=== PATIENT | female | born 1980 | race Caucasian/White ===

== ENCOUNTER → 2016-05-25 | Outpatient (CLI) | payer OTHER ==
[2015-04-18 14:57] VITALS: BP 133/83
[~2016-05-25] MED LIST: ACET500T55 PO; ARIP10TA13 PO; ASPI81TA44 PO; CARB300C5 PO; CLON0.1T PO; CLON1TAB PO; CLON1TAB3 PO; CRESTOR40 MG PO; CYCL10TA2 PO; DOXY100T PO; GUAI600T38 PO; HYDR25TA9 PO; HYDR50TA6 PO; INSU100V13 SQ; INSU100V5 IJ; LACT1CAP6 PO; LAMO200T3 PO; LISI2.5T PO; METF10002 PO; METO-269 PO; METO100T11 PO; METO100T2 PO; METO25TA4 PO; METO5AMP2 IV; NALT50TA PO; NIAC500T PO; NIAC500T10 PO; OMEG1CAP6 PO; OMEP20TA PO; OXCA300T PO; PANT40TA5 PO; PRAS10TA4 PO; SERT100T PO; SERT50TA PO; VENTOLIN HFA18 GM INH
--- NOTE | 2016-05-25 10:47 | RAD ---
EXAM: Chest, 2 views. HISTORY: Dry cough. COMPARISON: 02/17/2016. FINDINGS: Frontal and lateral views of the chest are obtained. There is no infiltrate, effusion or pneumothorax. The heart is normal in size. IMPRESSION: No acute pulmonary finding.
== END | disposition home or self-care (01) ==
LOC: RAD 10:20
PROVIDERS: ATTEND Internal Medicine Pulmonary Disease
DX: R06.02 Shortness of breath (principal); R05 Cough
CPT/HCPCS: 71020

== ENCOUNTER → 2016-06-05 | Outpatient (CLI) | payer OTHER ==
[2015-04-18 14:57] VITALS: BP 133/83
[~2016-06-05] MED LIST changes: +ATOR40TA PO; +LISI-338 PO
--- NOTE | 2016-06-05 14:07 | RAD ---
APPROVED REPORT Test Type: Exercise Stress Nurse/Tech: Sarah Carreon R.N. Test Indications: Chest pain Cardiac History: AR 2015, Stent, HTN, Family Hx AR,CAD Medications: SEE EMR Medical History: SEE EMR Resting ECG: SR Resting Heart Rate: 80 bpm Resting Blood Pressure: 133/80mmHg Pretest Chest Pain: No chest pain Nurse/Tech Notes S1S2, lungs CTA, denied chest pain or SOA. Consent: The procedure was explained to the patient in lay terms. Informed consent was witnessed. Fabio eout was entered into [employer]. History and Stress Test performed by Sarah Carreon R.N. Stress Symptoms SOA. POST EXERCISE Reason for Termination: Reached target heart rate Target HR: 156 Max HR: 160 bpm 102% of Maximum Predicted HR: 184 bpm Exercise duration: 7:00 min:sec, 2 Stage Exercise capacity: 10.0METs Max Blood Pressure: 176/99mmHg Blood Pressure response to exercise: Normal blood pressure response during stress. Heart Rate response to exercise: Norrmal Chest Pain: No. Arrhythmia: No. ST Change: No. INTERPRETATION Stress EKG Conclusion: No acute changes were noted. Pt was extremely SOA and was not able to continue past 7:00 minutes. Imaging Protocol IMAGE PROTOCOL: Rest Tc-99m/stress Tc-99m 1 day Rest: Stress: Viability: Radiopharm.Tc99m KjvoultsyTj90i Sestamibi Dose12.2mCi 34mCi Duration 15min. 10min. Img Date 06/05/2016 06/05/2016 Inj-Img Naqz50aum. 60min. Rest Admin Site:IV - Left AntecubitalAdministrator:PRISCILLA Markham Stress Admin Site: IV - Left AntecubitalAdministrator: Edward Stein, RT (R)(N) STRESS DATA End Diast. Vol.153.0mlAv. Heart Rate70.0bpm End Syst. Vol.60.0mlCO Index BSA0.0L/min Myocardial Yzvf617.0gEject. Yonivvnl50.0% Stress Rates Pk. Fill Rate2.71EDV/secLVtime Pk. Fill 118.63msec Pk. Empty Rate3.00ESV/secLVtime Pk. Zyxms606.36msec 05/19 Pk. Fill1.82EDV/sec Stress Scores Regional WT0.00Summed WT14.00 Regional WM0.00Summed WM0.00 LV Perfusion There is a large sized, severe in intensity partially reversible defect consistent with prior infarct with mild efraín-infarct reversible ischemia. Wall Motion Moderate lateral wall hypokinesis. LV Perf. Quant 17 Seg. SSS13.00 17 Seg. SRS11.00 17 Seg. SDS3.00 Stress Defect Extent (% LAD)0.00Rest Defect Extent (% LAD)0.00Rev. Defect Extent (% LAD)0.00 Stress Defect Extent (% LCX) 93.80Rest Defect Extent (% LCX)86.30Rev. Defect Extent (% LCX)17.50 Stress Defect Extent (% RCA)0.00Rest Defect Extent (% RCA)0.00Rev. Defect Extent (% RCA)0.00 Stress Defect Extent (% JESUS)20.70Rest Defect Extent (% JESUS)18.70Rev. Defect Extent (% JESUS)3.30 Other Information Quality:Good Risk Assessment: Moderate Risk Conclusion 1. EKG changes suggestive of ischemia in the anterolateral territory with [address] segment depression. 2. Large lateral wall defect consistent with prior infarct with mild efraín-infarct reversibility. 3. Normal EF. 4. Moderate risk study.
== END | disposition home or self-care (01) ==
LOC: NM 06:59
PROVIDERS: ATTEND Internal Medicine Cardiovascular Disease
DX: R07.9 Chest pain, unspecified (principal)
CPT/HCPCS: 78452; 93017; 96374; A9500

== ENCOUNTER 2016-06-08 09:40 | Observation (INO) | payer OTHER ==
[~2016-06-08] VITALS: Ht 165.1 cm; Wt 83.9 kg
[2016-06-08] VITALS (10 sets, daily range): BP systolic 116–155; BP diastolic 66–97
[~2016-06-08 09:40] MED LIST changes: -ATOR40TA PO
[2016-06-08] MEDS ORDERED: IV NORMAL SALINE 1000ML BAG 1,000 ML IV SCH (10:00)
[2016-06-08 10:09] LABS: BASO # 0.1 x10^3/uL (0.0-0.2); BASO % 1 % (0-3); EOS % 2 % (0-3); HEMATOCRIT 40.9 % (36.0-47.0); HEMOGLOBIN 14.2 g/dL (12.0-15.5); LYMPH # 3.4 x10^3/uL (1.0-4.8); LYMPH % 32 % (24-48); MEAN CORPUSCULAR HEMOGLOBIN 30 pg (25-35); MEAN CORPUSCULAR HGB CONC 35 g/dL (31-37); MEAN CORPUSCULAR VOLUME 86 fL (79-100); MONO % 6 % (0-9); NEUT % 59 % (31-73); PLATELET COUNT 244 x10^3/uL (140-400); RED BLOOD COUNT 4.74 x10^6/uL (3.50-5.40); RED CELL DISTRIBUTION WIDTH 14.6 % (11.5-14.5); WHITE BLOOD COUNT 10.5 x10^3/uL (4.0-11.0)
[2016-06-08 10:19] LABS: NEG OBC UR NEG; POS OBC UR POS
[2016-06-08 10:25] LABS: CALCIUM 8.3 mg/dL (8.5-10.1); CREATININE 0.9 mg/dL (0.6-1.0); GFR 70.8; POTASSIUM 3.6 mmol/L (3.5-5.1)
[2016-06-08] MEDS ORDERED: ASPIRIN 325 MG TABLET PO ONE (10:30)
[2016-06-08] MEDS ORDERED: IOHEXOL 300 MG/ML 100ML VIAL. ONE (11:32)
[2016-06-08] MEDS ORDERED: LIDOCAINE 2% 20 ML VIAL. ONE (11:33)
[2016-06-08] MEDS ORDERED: NITROGLYCERIN 200 MCG/2 ML SYRINGE FOR CATH/VASC LAB. ONE (11:34)
[2016-06-08] MEDS ORDERED: HEPARIN for IV BOLUS 10,000 UNIT/10 ML VIAL. ONE (11:34)
[2016-06-08] MEDS ORDERED: MIDAZOLAM HCL 2 MG/2 ML VIAL. ONE ×2 (11:34→12:15)
[2016-06-08] MEDS ORDERED: VERAPAMIL 5 MG/2 ML VIAL. ONE (11:34)
[2016-06-08] MEDS ORDERED: FENTANYL PF 100 MCG/2 ML VIAL. ONE (11:34)
[2016-06-08] MEDS ORDERED: VERAPAMIL 5 MG/2 ML VIAL. IART ONE (12:00)
[2016-06-08] MEDS ORDERED: FENTANYL PF 100 MCG/2 ML VIAL. IV ONE (12:00)
[2016-06-08] MEDS ORDERED: LIDOCAINE 2% 20 ML VIAL. IJ ONE (12:00)
[2016-06-08] MEDS ORDERED: MIDAZOLAM HCL 2 MG/2 ML VIAL. IV ONE (12:00)
[2016-06-08] MEDS ORDERED: HEPARIN for IV BOLUS 10,000 UNIT/10 ML VIAL. IART ONE (12:00)
[2016-06-08] MEDS ORDERED: IOHEXOL 300 MG/ML 100ML VIAL. IART ONE (12:00)
[2016-06-08] MEDS ORDERED: NITROGLYCERIN 200 MCG/2 ML SYRINGE FOR CATH/VASC LAB. IART ONE (12:00)
[2016-06-08] MEDS ORDERED: BIVALIRUDIN 250 MG VIAL IV ONE ×2 (12:23→12:28)
[2016-06-08] MEDS ORDERED: NITROGLYCERIN 200 MCG/2 ML SYRINGE FOR CATH/VASC LAB. ICAR ONE (12:26)
[2016-06-08] MEDS ORDERED: PRASUGREL 10 MG TABLET. ONE (12:57)
[2016-06-08] MEDS ORDERED: PRASUGREL 10 MG TABLET. PO ONE (13:00)
[2016-06-08] MEDS ORDERED: 0.9 % SODIUM CHLORIDE 10 ML DISP.SYRIN. IV PRN (15:00)
[2016-06-08] MEDS ORDERED: ACETAMINOPHEN 325 MG TABLET. PO PRN (15:00)
[2016-06-08] MEDS ORDERED: ATROPINE 0.5 MG/5 ML DISP.SYRIN. IV PRN (15:00)
[2016-06-08] MEDS ORDERED: CYCLOBENZAPRINE 10 MG TABLET. PO PRN ×2 (15:00→20:00)
[2016-06-08] MEDS ORDERED: NITROGLYCERIN SUBLINGUAL 0.4 MG BOTTLE OF 25. SL PRN (15:00)
[2016-06-08] MEDS ORDERED: LIDOCAINE 2% 100 MG/5 ML DISP.SYRIN. IV PRN (15:00)
[2016-06-08] MEDS ORDERED: AMIODARONE 150 MG in IV DEXTROSE 5% 100 ML IV PRN (15:00)
[2016-06-08] MEDS ORDERED: METO25TA4 PO (15:15)
[2016-06-08] MEDS ORDERED: CYCL10TA2 PO (15:15)
--- NOTE | 2016-06-08 17:14 | CARD ---
APPROVED REPORT Procedure(s) performed: [facility] + Coronary angiography PTCA + PCI of the mid LAD HISTORY The patient is a 35 year-old female with a history of : tobacco history() : The patient is a former s moker, previous PCI (The PCI date was ), hypertension, dyslipidemia. INDICATION The indication(s) include : positive stress test, unstable angina , Patient is a pleasant 35-year-old woman who comes in to the catheterization laboratory in the setting of a mildly abnormal stress test and accelerating angina. She has had a prior history of a left circumflex intervention in the [facility] g of cardiac arrest approximately 1 year ago.. PROCEDURE NARRATIVE The patient was brought electively to the cardiac catheterization lab. A timeout was performed confi rming the patient's name, date of , procedure, and site of procedure. All necessary personnel w ere wearing the appropriate protective equipment and radiation monitor devices. After explaining the risks and benefits of the procedure and alternatives, informed consent was obtained. (See nursing no julissa for medications administered). The right wrist was sterilely prepped and draped in the usual fas hion. The right wrist was infiltrated with 1 mL of 2% lidocaine for subcutaneous anesthesia. A 6 Fr ench Terumo glide sheath was inserted into the right radial artery without difficulty. Right and lef t coronary angiography was performed using a 6Fr TIG 4.0 catheter. Left ventricular end diastolic pr essure was obtained and pullback was performed. HEMODYNAMICS: LVEDP 18 mm Hg No gradient on LV to aortic pullback. CORONARY ANGIOGRAPHY: LM is a large caliber vessel with normal angiographic appearance. LAD is a large caliber vessel with a mid 80% stenosis. D1 is a small caliber vessel with mild luminal irregularities. LCx is a moderate caliber non-dominant vessel with a patent stent extending into the OM1 with a proxi mal 40-50% stent edge stenosis. OM1 is a moderate caliber vessel with a patent stent and approximate 50% stent edge stenosis in the p roximal and distal edges. RCA is a large caliber dominant vessel with normal angiographic appearance. RPDA is a moderate caliber vessel with a proximal 40% stenosis. INTERVENTIONAL TECHNIQUE: PCI of the LAD and FFR of the left circumflex Based upon the presentation of accelerating angina and abnormal stress test with a 80% LAD lesion and intervention was performed. Bivalirudin was used for anti-coagulation. Through a 6 Danish EBU 3.5 g uide catheter a 0.014 inch Prowater wire was used to traverse the LAD lesion. The lesion was then an gioplastied with a 3.5 x 15 mm trek balloon and then stented with a Xience Alpine 4.0 x 18 mm drug-el uting stent. Separately, post PCI angiography revealed possible mid stent suboptimal expansion and t herefore a noncompliant 4.0 mm balloon was used to post dilate the mid and proximal segment of the st ent at 18 fela. Subsequently, a Jinni pressure wire was then used to perform an iFR of the left cir cumflex and obtuse marginal stent. The iFR was measured at 0.94 and given that this was not signific antly decreased further intervention was deferred in favor of continued medical therapy. Final post PCI angiography revealed excellent stent expansion in the LAD and no evidence of guide or wire relate d complications. All catheter exchanges and advancements were performed over a guidewire. At case co mpletion the right radial sheath was removed and a Terumo radial band was applied with 13 ml of air. The patient tolerated the procedure well and there were no immediate complications. The patient rec eived 60 mg of Prasugrel at case completion. Conclusion 1. Two-vessel coronary artery disease with de rahat lesion in the mid LAD. 2. Patent stent in the left circumflex with 40-50% in-stent restenosis at the distal stent edge is a nd the proximal stent edge. 3. Successful PCI of the mid LAD with implantation of a 4.0 x 18 mm drug-eluting stent 4. Negative IFR of the left circumflex in-stent restenosis. Recommendations Aspirin 81 mg daily indefinitely Effient 10 mg daily for 1 full year and consider dual antiplatelet therapy for lifelong. High-dose atorvastatin Cardiac rehabilitation referral Continue aggressive medical therapy
[2016-06-08] MEDS ORDERED: ACETAMINOPHEN 500 MG TABLET PO PRN (20:00)
[2016-06-08] MEDS ORDERED: ALBUTEROL SULFATE 2.5 MG/3 ML NEBU. NEB PRN (20:00)
[2016-06-08] MEDS: FENTANYL PF 100 MCG/2 ML VIAL. IV PRN (20:07)
[2016-06-08] MEDS: CLONAZEPAM 1 MG TABLET PO SCH ×2 (21:00→21:41)
[2016-06-08] MEDS: OXCARBAZEPINE 300 MG TABLET. PO SCH (21:00)
[2016-06-08] MEDS ORDERED: ATORVASTATIN CALCIUM 40 MG TABLET. PO SCH (21:00)
[2016-06-08] MEDS: CARBAMAZEPINE 200 MG TABLET. PO SCH (21:00)
[2016-06-08] MEDS: METOPROLOL TART IMMED RELEASE 25 MG TABLET PO SCH (21:43)
[2016-06-09] MEDS: FENTANYL PF 100 MCG/2 ML VIAL. IV PRN (02:09)
[2016-06-09 02:45] VITALS: BP 116/63
[2016-06-09 05:06] LABS: CHOLESTEROL/HDL RATIO 3.7
[2016-06-09] MEDS ORDERED: PANTOPRAZOLE 40 MG TABLET. PO SCH (07:30)
[2016-06-09 07:55] VITALS: BP 142/85
[2016-06-09] MEDS ORDERED: ASPIRIN ENTERIC COATED 81 MG TABLET.DR. PO SCH (08:00)
[2016-06-09] MEDS ORDERED: ASPIRIN 81 MG TAB.CHEW PO SCH (08:00)
[2016-06-09] MEDS ORDERED: PRASUGREL 10 MG TABLET. PO SCH (08:00)
[2016-06-09 09:00] VITALS: BP 142/85
[2016-06-09] MEDS ORDERED: LISINOPRIL 5 MG TABLET. PO SCH (09:00)
[2016-06-09] MEDS: OXCARBAZEPINE 300 MG TABLET. PO SCH (09:00)
[2016-06-09] MEDS ORDERED: SERTRALINE 50 MG TABLET. PO SCH (09:00)
[2016-06-09] MEDS: METOPROLOL TART IMMED RELEASE 25 MG TABLET PO SCH (09:00)
[2016-06-09] MEDS: CARBAMAZEPINE 200 MG TABLET. PO SCH (09:00)
[2016-06-09] MEDS: CLONAZEPAM 1 MG TABLET PO SCH (09:00)
[2016-06-09] MEDS ORDERED: ATOR40TA PO (09:43)
[2016-06-09] MEDS ORDERED: PRAS10TA4 PO (09:45)
--- NOTE | 2016-06-09 10:02 | DISCH ---
DISCHARGE INSTRUCTIONS Condition on Discharge Condition on Discharge: Stable Activity After Discharge Activity Instructions for Disc: Activity as tolerated, Avoid exertion Other activity instructions: see diagnosis specific instructions Lifting Instructions after Dis: No heavy lifting, No pulling or pushing, Do not lift >10 pounds Driving Instructions after Dis: Do not drive today Weight Bearing Status after Di: As tolerated Diet after Discharge Diet after Discharge: Cardiac Contacting the DRZari after DC Call your doctor for: Concerns you may have RAMON FERNANDEZ APRN Jun 09, 2016 10:02
--- NOTE | 2016-06-09 13:59 | PDOC3 ---
Discharge Summary Visit Information Date of Admission: Jun 08, 2016 Date of Discharge: Jun 09, 2016 Admitting Diagnosis: Abnormal MPI Final Diagnosis Problems Medical Problems: (1) Coronary artery disease Status: Acute Brief Hospital Course Allergies Allergies Coded Allergies Type Severity Reaction Last Updated Verified Penicillins Allergy Intermediate Hives 04/15/15 Yes ibuprofen Allergy Intermediate Rash 04/15/15 Yes Vital Signs Vital Signs Date Time Temp Pulse Resp B/P Pulse Ox O2 Delivery O2 Flow Rate FiO2 06/09/16 09:00 53 142/85 06/09/16 08:00 Room Air 06/09/16 07:55 97.9 20 98 97.9 Lab Results Laboratory Tests Test 06/08/16 09:55 06/08/16 10:00 06/09/16 04:22 Urine Test Negative (NEG) White Blood Count 10.5x10^3/uL (4.0-11.0) Red Blood Count 4.74x10^6/uL (3.50-5.40) Hemoglobin 14.2g/dL (12.0-15.5) Hematocrit 40.9% (36.0-47.0) Mean Corpuscular Volume 86fL (79-100) Mean Corpuscular Hemoglobin 30pg (25-35) Mean Corpuscular Hemoglobin Concent 35g/dL (31-37) Red Cell Distribution Width 14.6% (11.5-14.5) Platelet Count 244x10^3/uL (140-400) Neutrophils (%) (Auto) 59% (31-73) Lymphocytes (%) (Auto) 32% (24-48) Monocytes (%) (Auto) 6% (0-9) Eosinophils (%) (Auto) 2% (0-3) Basophils (%) (Auto) 1% (0-3) Neutrophils # (Auto) 6.2x10^3uL (1.8-7.7) Lymphocytes # (Auto) 3.4x10^3/uL (1.0-4.8) Monocytes # (Auto) 0.6x10^3/uL (0.0-1.1) Eosinophils # (Auto) 0.2x10^3/uL (0.0-0.7) Basophils # (Auto) 0.1x10^3/uL (0.0-0.2) Prothrombin Time 13.0SEC (11.7-14.0) Prothromb Time International Ratio 1.0 (0.8-1.1) Sodium Level 143mmol/L (136-145) Potassium Level 3.6mmol/L (3.5-5.1) Chloride Level 106mmol/L (98-107) Carbon Dioxide Level 28mmol/L (21-32) Anion Gap 9 (6-14) Blood Urea Nitrogen 7mg/dL (7-20) Creatinine 0.9mg/dL (0.6-1.0) Estimated GFR (Cockcroft-Gault) 70.8 Glucose Level 97mg/dL (70-99) Calcium Level 8.3mg/dL (8.5-10.1) Triglycerides Level 88mg/dL (0-150) Cholesterol Level 129mg/dL (0-200) LDL Cholesterol, Calculated 76mg/dL (0-100) VLDL Cholesterol, Calculated 18mg/dL (0-40) HDL Cholesterol 35mg/dL (40-60) Cholesterol/HDL Ratio 3.7 Laboratory Tests Test 06/09/16 04:22 Triglycerides Level 88mg/dL (0-150) Cholesterol Level 129mg/dL (0-200) LDL Cholesterol, Calculated 76mg/dL (0-100) VLDL Cholesterol, Calculated 18mg/dL (0-40) HDL Cholesterol 35mg/dL (40-60) Cholesterol/HDL Ratio 3.7 Brief Hospital Course Ms. Mcmanus is a 35 old female, with a history of CAD s/p PCI/stent to LCx and dyslipidemia, who presented electively for cardiac catheterization following an outpatient MPI notable for large lateral wall defect consistent with prior infarct with mild efraín-infarct reversibility. Coronary angiogram demonstrated two-vessel coronary artery disease with lesion in the mid LAD along with patent stent in the left circumflex with 40-50% in-stent restenosis at the distal stent edge. Patient underwent successful PCI/drug eluting stent placement to the mid LAD. Negative IFR of the left circumflex in-stent restenosis. Monitored overnight without complications or dysrhythmias noted on telemetry. Right radial arteriotomy C/D/I with neurovascular status intact. Lungs CTA bilaterally. Heart tones regular; no murmurs present. DAPT with ASA 81 mg indefinitely and prasugrel 10mg daily for 1 full year with consideration of lifelong DAPT. Prasugrel coupon card provided. Discharge Information Condition at Discharge: Stable Follow Up: Weeks (4) Disposition/Orders: D/C to Home Scheduled Aspirin (Children's Aspirin) 81 MG PO DAILYWBKFT Atorvastatin Calcium (Lipitor) 1 TAB PO QHS Carbamazepine (Carbatrol) 300 MG PO Q12HR (Reported) Clonazepam (Clonazepam) 1 MG PO TID (Reported) Lisinopril (Lisinopril) 1 TAB PO DAILY (Reported) Metoprolol Tartrate (Metoprolol Tartrate) 1 TAB PO BID (Reported) Oxcarbazepine (Oxcarbazepine) 1 TAB PO BID (Reported) Pantoprazole Sodium (Pantoprazole Sodium) 1 TAB PO DAILY (Reported) Prasugrel Hcl (Effient) 1 TAB PO DAILY Sertraline Hcl (Zoloft) 100 MG PO DAILY (Reported) Scheduled PRN Acetaminophen (Mapap) 1,000 MG PO PRN Q6HRS PRN PRN MILD PAIN Albuterol Sulfate (Ventolin Hfa Inhaler) 2 PUFF INH PRN QID PRN PRN SHORTNESS OF BREATH (Reported) Cyclobenzaprine Hcl (Cyclobenzaprine Hcl) 1 TAB PO PRN TID PRN PRN MUSCLE SPASMS (Reported) Patient Instructions Patient Instructions sdfGENERAL INSTRUCTIONS: 1. Your dressing should be removed prior to leaving the hospital. 2. It is OK to shower the day after your procedure. 3. If you received stents, be sure to carry your stent information card with you in your wallet/purse at all times. 4. Call the office immediately at [phone] if you notice any fever or if there is redness, worsening tenderness/pain, increased bruising, or drainage from the puncture site. 5. Should you have bleeding from the site, lie down immediately & put pressure on the site. The pressure should be hard enough to stop the bleeding. Have the nearest person call 911. DO NOT try to drive to the ER with active bleeding. 6. If you notice a change in color, coolness to touch, or loss of feeling in the affected extremity, come to the emergency room. Please have someone drive you or call 911 if no one is available. DO NOT drive yourself. 7. If you normally take glucophage (metformin), please do not take this medicine for 48 hours following your procedure. 8. DO NOT STOP TAKING YOUR PLAVIX OR ASPIRIN UNLESS IT IS CLEARED BY A TREASURY ANALYST OF YOUR EXPLOSIVES TRUCK DRIVER AT OUR OFFICE. 9. QUIT SMOKING: the [place] [employer], [place] [employer], & [place] [employer] have cessation resources available on their websites 10. Please have someone available to drive you home from the hospital as you may be limited by sedation medications given during the procedure. Femoral (Groin) access: 1. Do no lifting, pushing, pulling, bending, stooping, or recurrent stair climbing for 3 days following your procedure. 2. Once past the first 3 days, do not do any HEAVY exertion or lifting for one week following the procedure. No gym workouts, running, lifting greater than a gallon of milk, etc 3. Do not submerge in bath or pool for one week. OK to drive 3 days following your procedure, but if going long distance, do not go alone & take hourly breaks to get out of car and walk around. Radial Artery (Wrist) access: 1. No pushing, pulling, lifting, typing, or anything that requires repetitive use/movement of the affected wrist for 3 days following your procedure. 2. OK to drive the day following your procedure. (This is because of effects of sedating medications.) Call the office at [phone] for any questions or concerns. RAMON FERNANDEZ APRN Jun 09, 2016 13:59
--- NOTE | 2016-06-15 14:55 | PDOC ---
Provider Note Provider Note Cardiology brief history and physical Giuseppe is a pleasant 35-year-old woman with past medical history as noted below who presented to the hospital in the setting of an abnormal stress test. She was recently seen in clinic in February 2016 during which time she's had progressive increase in dyspnea and occasional chest pain. She underwent a stress test which was suggestive of a fixed lateral wall defect consistent with her old history of myocardial infarction but she also had some mild apical reversibility for which she underwent cardiac catheterization. Her cardiac catheterization revealed a new 80% LAD stenosis which was then stented. Past medical history 1. Coronary artery disease 2. Septemia 3. Mild hypertension 4. Prior history of tobacco abuse Social history patient denies any current alcohol, tobacco or illicit drug use. Family history no significant early arthroscopic heart disease Allergies as noted above to penicillins and ibuprofen Medications: Pertinent cardiovascular medications include lisinopril, aspirin, Effient, atorvastatin and metoprolol. Review of systems is negative for 10 out of 14 systems reviewed unless otherwise mentioned above in HPI. Physical examination Vital signs afebrile, heart rate 70s, blood pressure 116/82, pulse ox 99% on room air, respiratory rate 14 GENERAL: Well-appearing, well-nourished and in no acute distress. HEENT: EOMI, BUTCH. NC/AT. NECK: Normal range of motion, supple without lymphadenopathy or JVD. LUNGS: CTAB. No wheezes rales or rhonchi. HEART: Regular rate and rhythm without murmurs, rubs or gallops. ABDOMEN: Soft, nontender, normoactive bowel sounds. No guarding, no rebound. No masses appreciated. EXTREMITIES: Normal range of motion, no pitting or edema. No clubbing or cyanosis. NEUROLOGICAL: Cranial nerves II through XII grossly intact. Normal speech. PSYCH: Normal mood, normal affect. SKIN: Warm, Dry, normal turgor, no rashes or lesions noted. Coronary angiography revealed patency of left circumflex stents with new 80% lesion which was stented with a 4.0 mm drug-eluting stent. Impression: 1. Coronary artery disease, early atherosclerosis Recommendations/plan: 1. Admission to the telemetry unit for overnight monitoring after PCI today. 2. Continue cardiac medications. 3. Referral to cardiac rehabilitation 4. Follow-up in clinic in approximately 4 weeks. RAYNE SHEA MD Jun 15, 2016 14:55
== END 2016-06-09 10:55 | disposition other institution (70) ==
LOC: CCL 09:40 → INTOOBSV 12:26 → 2 NORTH 12:26
PROVIDERS: ADMIT Internal Medicine Cardiovascular Disease; ATTEND Internal Medicine Cardiovascular Disease
DX: I25.110 Atherosclerotic heart disease of native coronary artery with unstable angina pectoris (principal); E78.5 Hyperlipidemia, unspecified; Z88.0 Allergy status to penicillin; T82.855A Stenosis of coronary artery stent, initial encounter; I10 Essential (primary) hypertension; Z87.891 Personal history of nicotine dependence
CPT/HCPCS: 36415; 80048; 80061; 81025; 85027; 85610; 92928; 93458; 93571; 96374; 96375; 96376; C1725; C1769; C1874; C1887; C1892; G0378; G0379; J0583; J2250; J3010; J3490; Q9967

== ENCOUNTER → 2016-07-28 | Outpatient (CLI) | payer OTHER ==
[~2016-07-28] MED LIST changes: +ATOR40TA PO
--- NOTE | 2016-07-28 10:59 | KCIC ---
PROCEDURE CT lumbar spine without contrast. HISTORY Low back pain into both legs, chronic back pain, bilateral radiculopathy greater on the left TECHNIQUE Noncontrast CT imaging was performed lumbar spine, multiplanar reconstruction images submitted. Exposure: One or more of the following individualized dose reduction techniques were utilized for this exam: 1. Automated exposure control. 2. Adjustment of the mA and/or kV according to patient size. 3. Use of iterative reconstruction technique. COMPARISON February 09, 2012 MRI lumbar spine exam FINDINGS There is now grade 1 anterior spondylolisthesis at L5-S1, bilateral L5 spondylolysis. There is negligible posterior subluxation L4 relative to L5. There is fairly advanced degenerative disc disease greater anteriorly at L4-5, mild to moderate degenerative disc disease at L5-S1. Lumbar vertebral body stature is preserved. L1-2: Spinal canal and neural foramina are adequate. L2-3: Spinal canal and neural foramina are adequate. There is mild facet hypertrophic change L3-4: There is mild facet hypertrophic change and buckling of the ligamentum flavum. Spinal canal and neural foramina are adequate L4-5: There is likely broad posterior bulge, likely mild narrowing of the far lateral recesses greater on the left. There is also focus of extradural gas in the anterior left lateral recess below the intervertebral disc space, posterior to the mid to superior L5 vertebral body. Findings likely due to gas containing extrusion. There is likely mild to moderate left lateral recess stenosis below the intervertebral disc space level with contact of the descending left L5 nerve root. There is mild neural foramina compromise bilaterally. There is mild facet degenerative change. L5-S1: Spinal canal is widely patent. There is partial uncovering of the posterior aspect of the disc due to spondylolisthesis with superimposed bulge. There is increased severe left and likely moderate right neural foramina compromise. IMPRESSION 1. There is grade 1 anterior spondylolisthesis at L5-S1, bilateral L5 spondylolysis. 2. There is advanced degenerative disc disease L4-5, to lesser degree at L5-S1. 3. There is likely mild to moderate left lateral recess stenosis below the L4-5 intervertebral disc space by gas containing extrusion, likely contact descending left L5 nerve root. There is a lesser degree of mild, left greater than right lateral recess stenosis at the L4-5 intervertebral disc space level. 4. There is severe left and moderate right L5-S1 neural foramina compromise, mild neural foramina compromise bilaterally at L4-5. Electronically signed by: Elvin Acosta MD (Jul 28, 2016 10:58:28)
== END | disposition home or self-care (01) ==
LOC: KCIC CT 10:10
PROVIDERS: ATTEND Family Medicine
DX: M43.17 Spondylolisthesis, lumbosacral region (principal); M43.06 Spondylolysis, lumbar region; M51.36 Other intervertebral disc degeneration, lumbar region; M48.06 Spinal stenosis, lumbar region
CPT/HCPCS: 72131

== ENCOUNTER 2016-08-02 10:44 | Emergency (ER) | payer OTHER ==
[~2016-08-02] VITALS: Ht 165.1 cm; Wt 83.9 kg
--- NOTE | 2016-08-02 11:15 | PHYS DOC ---
Past Medical History Past Medical History: Anxiety, Asthma, Depression, Diabetes-Type II, High Cholesterol, Hypertension, Other Additional Past Medical Histor: CARDIAC ARREST,OVERDOSE Past Surgical History: Angioplasty, Cholecystectomy, Tubal ligation, Other Additional Past Surgical Histo: wisdom teeth,breast reduction,ear tube placement,repair broken nose,STENT Smoking: Quit Greater Than 1 Year Alcohol Use: None Drug Use: Marijuana Adult General Chief Complaint Chief Complaint: HEADACHE HPI HPI Patient is a 35 year old female with history of hypertension and cardiac stent who presents with headache and elevated blood pressure for 1 week. The pain is primarily retro-orbital. She denies change in her vision, weakness or numbness, chest pain, shortness of breath, nausea, vomiting, or abdominal pain. She takes metoprolol and lisinopril for her blood pressure daily. She took her medications today at 0930. She checked her blood pressure at home prior to taking her medications and her machine read 188/116. She called [facility] and was instructed to go to the emergency department. Her PCP is Dr. Messi Velazquez. Her steel crane operator is Dr. Conway. Review of Systems Review of Systems Constitutional: Denies fever or chills. [] Eyes: Denies change in visual acuity, redness, or eye pain. [] HENT: Denies ear pain, nasal congestion or sore throat. [] Respiratory: Denies cough or shortness of breath. [] Cardiovascular: Denies chest pain, palpitations or edema. [] GI: Denies abdominal pain, nausea, vomiting, bloody stools or diarrhea. [] : Denies dysuria, hematuria or urinary frequency. [] Musculoskeletal: Denies back pain or joint pain. [] Integument: Denies rash or skin lesions. [] Neurologic: Denies focal weakness or sensory changes. Reports headache. Endocrine: Denies polyuria or polydipsia. [] Psych: Denies anxiety or depression. [] All systems reviewed and negative unless otherwise stated in the HPI. Current Medications Current Medications Current Medications Medications (Trade) Dose Ordered Sig/Rohan Start Time Stop Time Status Last Admin Dose Admin Hydralazine HCl (Apresoline) 20 mg STK-MED ONCE 08/02/16 11:31 08/02/16 11:32 DC Allergies Allergies Allergies Coded Allergies Type Severity Reaction Last Updated Verified Penicillins Allergy Intermediate Hives 04/15/15 Yes ibuprofen Allergy Intermediate Rash 04/15/15 Yes Physical Exam Physical Exam Constitutional: Well developed, well nourished, no acute distress, non-toxic appearance. [] HENT: Normocephalic, atraumatic, bilateral external ears normal, oropharynx moist, no oral exudates, nose normal. There is TM tube in the right ear inappropriate placement. There is no tube in the left ear. Eyes: PERRLA, EOMI, conjunctiva normal, no discharge. [] Neck: Normal range of motion, no tenderness, supple, no stridor. [] Cardiovascular: Heart rate regular rhythm, no murmur [] Lungs & Thorax: Bilateral breath sounds clear to auscultation without wheezes, rales, or rhonchi. Abdomen: Bowel sounds normal, soft, no tenderness, no masses, no pulsatile masses. [] Skin: Warm, dry, no erythema, no rash. [] Back: No tenderness, no CVA tenderness. [] Extremities: No tenderness, no cyanosis, no clubbing, ROM intact, no edema. [] Neurologic: Alert and oriented X 3, normal motor function, normal sensory function, no focal deficits noted. CN II-XII grossly intact. Cerebellar function grossly intact on finger-nose testing Psychologic: Affect normal, judgement normal, mood normal. [] Current Patient Data Vital Signs Vital Signs Date Time Temp Pulse Resp B/P Pulse Ox O2 Delivery O2 Flow Rate FiO2 08/02/16 11:33 68 178/122 08/02/16 10:52 97.3 22 98 Room Air 97.3 Lab Values Laboratory Tests Test 08/02/16 11:16 White Blood Count 11.6x10^3/uL (4.0-11.0) H Red Blood Count 4.61x10^6/uL (3.50-5.40) Hemoglobin 13.7g/dL (12.0-15.5) Hematocrit 40.1% (36.0-47.0) Mean Corpuscular Volume 87fL (79-100) Mean Corpuscular Hemoglobin 30pg (25-35) Mean Corpuscular Hemoglobin Concent 34g/dL (31-37) Red Cell Distribution Width 15.2% (11.5-14.5) H Platelet Count 235x10^3/uL (140-400) Neutrophils (%) (Auto) 67% (31-73) Lymphocytes (%) (Auto) 24% (24-48) Monocytes (%) (Auto) 6% (0-9) Eosinophils (%) (Auto) 2% (0-3) Basophils (%) (Auto) 1% (0-3) Neutrophils # (Auto) 7.8x10^3uL (1.8-7.7) H Lymphocytes # (Auto) 2.8x10^3/uL (1.0-4.8) Monocytes # (Auto) 0.7x10^3/uL (0.0-1.1) Eosinophils # (Auto) 0.3x10^3/uL (0.0-0.7) Basophils # (Auto) 0.1x10^3/uL (0.0-0.2) Prothrombin Time 12.4SEC (11.7-14.0) Prothrombin Time INR 1.0 (0.8-1.1) Sodium Level 145mmol/L (136-145) Potassium Level 3.9mmol/L (3.5-5.1) Chloride Level 106mmol/L (98-107) Carbon Dioxide Level 26mmol/L (21-32) Anion Gap 13 (6-14) Blood Urea Nitrogen 15mg/dL (7-20) Creatinine 0.8mg/dL (0.6-1.0) Estimated GFR (Cockcroft-Gault) 81.2 Glucose Level 84mg/dL (70-99) Calcium Level 8.8mg/dL (8.5-10.1) Magnesium Level 1.7mg/dL (1.8-2.4) L Total Bilirubin 0.3mg/dL (0.2-1.0) Direct Bilirubin 0.1mg/dL (0.0-0.2) Aspartate Amino Transferase (AST) 21U/L (15-37) Alanine Aminotransferase (ALT) 25U/L (14-59) Alkaline Phosphatase 81U/L (46-116) Creatine Kinase 114U/L (26-192) Creatine Kinase MB (Mass) < 0.5ng/mL (0.0-3.6) Creatine Kinase MB Relative Index 0.4% (0-4) Troponin I Quantitative < 0.017ng/mL (0.000-0.055) ME-Ugn-A-Type Natriuretic Peptide 959pg/mL (0-124) H Total Protein 7.1g/dL (6.4-8.2) Albumin 3.8g/dL (3.4-5.0) Lipase 222U/L (73-393) Laboratory Tests 08/02/16 11:16 Laboratory Tests 08/02/16 11:16 EKG EKG EKG at 1111. Heart rate 63 bpm. Sinus rhythm without acute ischemic changes or STEMI, as interpreted by Dr. Corona. Radiology/Procedures Radiology/Procedures REASON: elevated BP PROCEDURE: PORTABLE CHEST 1V Indication: Hypertension today. Technique: Upright portable chest radiograph was obtained. Comparison is from May 25, 2016. Findings: The lungs are clear. The cardiopulmonary silhouette is within normal limits. The bony structures are intact. Leads overlie the patient. Impression: No active pulmonary disease. Course & Med Decision Making Course & Med Decision Making Pertinent Labs and Imaging studies reviewed. (See chart for details) Patient is a 35-year-old female with history of hypertension and cardiac stents who presents with headache and elevated blood pressure for one week. Upon arrival to the emergency room, her blood pressure is 178/126. On exam, she is in no distress and there are no neurologic deficits. EKG shows sinus rhythm with no ischemic changes. Chest x-ray is unremarkable. CT of the head does not show any acute changes. There are no significant laboratory abnormalities. There is no evidence of end organ damage from hypertension. The patient was given 10 mg of IV hydralazine in the emergency department. Her blood pressure decreased to 168/97 with concomitant decrease in her headache pain from 8/10 to 5/10. Her blood pressure further improved to 145/87 with headache pain then radiated at 3/10. I discussed the results with the patient. She is instructed to follow up with her steel crane operator, call in the morning to schedule an appointment. She is instructed to continue to log her blood pressure measurements at home. Return precautions were discussed. Patient verbalizes understanding and agrees with plan. Dragon Disclaimer Dragon Disclaimer This electronic medical record was generated, in whole or in part, using a voice recognition dictation system. Departure Departure Impression: Primary Impression: Hypertension Additional Impression: Headache Disposition: HOME, SELF-CARE Condition: IMPROVED Referrals: MESSI VELAZQUEZ MD (PCP) RAYNE CONWAY MD Patient Instructions: General Headache Without Cause, [id number], Hypertension, [id number] Additional Instructions: Your headache appears to be caused by your elevated blood pressure. Please continue to take your blood pressure medication as directed. Please continue to keep a log of your blood pressure readings at home. Please follow-up with your steel crane operator as soon as possible. Call in the morning to schedule an appointment within the next 1-2 days. Return to the emergency department if you have chest pain, shortness of breath, weakness or numbness on one side of your body, difficulty with speech, or other new or concerning symptoms. Problem Qualifiers Primary Impression: Hypertension Hypertension type: essential hypertension Qualified Code: I10 - Essential ( primary) hypertension Additional Impression: Headache Headache type: unspecified Headache chronicity pattern: unspecified pattern Intractability: not intractable Qualified Code: R51 - Headache ULISES LORENZ Aug 02, 2016 11:15
[2016-08-02] MEDS ORDERED: hydrALAZINE 20 MG/ML VIAL. IVP ONE (11:30)
[2016-08-02] MEDS ORDERED: hydrALAZINE 20 MG/ML VIAL. ONE (11:31)
[2016-08-02 11:38] LABS: BASO # 0.1 x10^3/uL (0.0-0.2); BASO % 1 % (0-3); EOS % 2 % (0-3); HEMATOCRIT 40.1 % (36.0-47.0); HEMOGLOBIN 13.7 g/dL (12.0-15.5); LYMPH # 2.8 x10^3/uL (1.0-4.8); LYMPH % 24 % (24-48); MEAN CORPUSCULAR HEMOGLOBIN 30 pg (25-35); MEAN CORPUSCULAR HGB CONC 34 g/dL (31-37); MEAN CORPUSCULAR VOLUME 87 fL (79-100); MONO % 6 % (0-9); NEUT % 67 % (31-73); PLATELET COUNT 235 x10^3/uL (140-400); RED BLOOD COUNT 4.61 x10^6/uL (3.50-5.40); RED CELL DISTRIBUTION WIDTH 15.2 % (11.5-14.5); WHITE BLOOD COUNT 11.6 x10^3/uL (4.0-11.0)
[2016-08-02 11:44] LABS: CALCIUM 8.8 mg/dL (8.5-10.1); CREATININE 0.8 mg/dL (0.6-1.0); GFR 81.2; POTASSIUM 3.9 mmol/L (3.5-5.1)
--- NOTE | 2016-08-02 11:47 | RAD ---
Indication: Hypertension today. Technique: Upright portable chest radiograph was obtained. Comparison is from May 25, 2016. Findings: The lungs are clear. The cardiopulmonary silhouette is within normal limits. The bony structures are intact. Leads overlie the patient. Impression: No active pulmonary disease.
[2016-08-02 11:49] LABS: PROTHROMBIN TIME PATIENT 12.4 SEC (11.7-14.0)
[2016-08-02 11:50] LABS: ALBUMIN 3.8 g/dL (3.4-5.0); DIRECT BILIRUBIN 0.1 mg/dL (0.0-0.2); MAGNESIUM 1.7 mg/dL (1.8-2.4); TOTAL BILIRUBIN 0.3 mg/dL (0.2-1.0); TOTAL PROTEIN 7.1 g/dL (6.4-8.2)
--- NOTE | 2016-08-02 11:56 | EKG ---
[facility] [address] [place] [address] Test Date: 2016-08-02 Test Time: 11:11:54 Pat Name: Awa Mcmanus Department: Room: Gender: F Forms Builder: : 1980 Requested By: ULISES LORENZ Order Number: [id number] Reading MD: Marissa Bennett Measurements Intervals [place] Rate: 63 P: 39 SD: 152 QRS: 38 QRSD: 84 T: 106 QT: 400 QTc: 412 Interpretive Statements SINUS RHYTHM T ABNORMALITY IN HIGH LATERAL LEADS RI6.01 Unconfirmed report Compared to ECG 04/16/2015 10:34:35 Prolonged QT interval no longer present T-wave abnormality still present Electronically Signed On 08-02-2016 15:22:32 CDT by Marissa Bennett
[2016-08-02 11:59] LABS: CKMB INDEX 0.4 % (0-4); CKMB MASS < 0.5 ng/mL (0.0-3.6); CREATINE KINASE 114 U/L (26-192)
--- NOTE | 2016-08-02 12:16 | RAD ---
Clinical Indication: Headache and hypertension. Technique: Study is dated August 02, 2016. CT images of the head were obtained from the skull base to the vertex without IV contrast. There are no comparison studies available. One or more of the following individualized dose reduction techniques were utilized for this examination: 1. Automated exposure control 2. Adjustment of the mA and/or kV according to patient size 3. Use of iterative reconstruction technique Findings: The ventricles are normal in size and configuration. There is no hemorrhage, extraaxial collection, mass, or midline shift. There is no large vascular distribution acute infarct. The posterior fossa and brainstem are unremarkable. Orbits are normal. The included paranasal sinuses and mastoid air cells are clear. There is no skull fracture appreciated on bone level images. Impression: No acute intracranial findings.
[2016-08-02 13:00] VITALS: BP 145/87
== END 2016-08-02 13:03 | disposition home or self-care (01) ==
LOC: ER 10:44
DX: I10 Essential (primary) hypertension (principal); R51 Headache; E78.00 Pure hypercholesterolemia, unspecified; E11.9 Type 2 diabetes mellitus without complications; F32.9 Major depressive disorder, single episode, unspecified; F41.9 Anxiety disorder, unspecified; F12.10 Cannabis abuse, uncomplicated; J45.909 Unspecified asthma, uncomplicated; Z86.74 Personal history of sudden cardiac arrest; Z88.0 Allergy status to penicillin; Z95.5 Presence of coronary angioplasty implant and graft; Z90.49 Acquired absence of other specified parts of digestive tract; Z98.51 Tubal ligation status; Z87.891 Personal history of nicotine dependence; Z88.8 Allergy status to other drugs, medicaments and biological substances
CPT/HCPCS: 36415; 70450; 71010; 80048; 80076; 82553; 83690; 83735; 83880; 84484; 85027; 85610; 93005; 96374; 99285; J0360

== ENCOUNTER → 2016-08-31 | Outpatient (CLI) | payer OTHER ==
[2016-08-02 13:00] VITALS: BP 145/87
--- NOTE | 2016-08-31 16:16 | KCIC ---
PROCEDURE MRI lumbar spine without contrast. HISTORY Low back pain, with leg numbness, greater on the left. Symptoms for several months. TECHNIQUE Sagittal T1, sagittal T2, sagittal STIR, axial T1, and axial T2 sequences are provided. COMPARISON July 28, 2016. FINDINGS Grade 1 spondylolisthesis secondary to bilateral L5 pars defects is re-demonstrated. Narrowing of the interspace at L4-L5 is again noted. There is minimal edema as well as fatty replacement of the endplates at L4-L5. Disc desiccation is noted at L4-L5 and L5-S1. The conus medullaris is normal in signal intensity and in position. The numbering system is based on 5 lumbar type vertebral bodies as demonstrated on the CT. Findings by individual level are as follows: L1-L2, L2-L3: There is no canal or foraminal compromise. L3-L4: Minimal disc bulge and minimal facet and ligamentum flavum hypertrophy are noted, no high-grade canal or foraminal compromise. L4-L5: There is a diffuse disc bulge as well as a broad-based left paracentral herniation. Herniation includes a small left paracentral component migrating inferiorly, herniated component about 7 x 4 x 9 millimeters in the transverse, AP, and craniocaudal dimensions. More broad-based component of the herniation is greater than 2 centimeters at its base and 4-5 millimeters in height. Facet hypertrophy also is present. There is left lateral recess narrowing. Midline AP diameter of the thecal sac is minimally narrowed to 10 millimeters. There is minimal foraminal narrowing. L5-S1: Disc bulge and facet hypertrophy are noted in addition to the anterolisthesis. There is foraminal narrowing, greater on the left. Exiting nerve root on the left is flattened. There is no canal stenosis. IMPRESSION Degenerative disc disease and facet hypertrophy at L4-L5 and L5-S1. There is minimal canal stenosis at L4-L5 with left lateral recess narrowing. There is foraminal narrowing at L5-S1, greater on the left. Electronically signed by: Alec Herndon MD (Aug 31, 2016 16:14:56)
== END | disposition home or self-care (01) ==
LOC: KCIC MRI 14:48
PROVIDERS: ATTEND Neurological Surgery
DX: M51.36 Other intervertebral disc degeneration, lumbar region (principal); M48.06 Spinal stenosis, lumbar region
CPT/HCPCS: 72148

== ENCOUNTER 2017-01-06 22:55 | Emergency (ER) | payer OTHER ==
[~2017-01-06] VITALS: Ht 162.6 cm; Wt 83.9 kg
[~2017-01-06 22:55] MED LIST changes: -ARIP10TA13 PO; +ARIP10TA9 PO; -GUAI600T38 PO; +GUAI600T47 PO; +METF-620 PO; -METF10002 PO; -OMEP20TA PO; +OMEP20TA8 PO; -PRAS10TA4 PO; +PRAS10TA9 PO
[2017-01-06] MEDS ORDERED: ONDANSETRON ODT 4 MG TAB.RAPDIS. PO ONE (23:45)
[2017-01-06] MEDS ORDERED: LORazepam 1 MG TABLET PO ONE (23:45)
[2017-01-06 23:54] LABS: BASO # 0.1 x10^3/uL (0.0-0.2); BASO % 1 % (0-3); EOS % 3 % (0-3); HEMATOCRIT 42.3 % (36.0-47.0); HEMOGLOBIN 14.2 g/dL (12.0-15.5); LYMPH % 25 % (24-48); MEAN CORPUSCULAR HEMOGLOBIN 30 pg (25-35); MEAN CORPUSCULAR HGB CONC 34 g/dL (31-37); MEAN CORPUSCULAR VOLUME 89 fL (79-100); MONO % 4 % (0-9); NEUT % 68 % (31-73); PLATELET COUNT 217 x10^3/uL (140-400); RED BLOOD COUNT 4.75 x10^6/uL (3.50-5.40); RED CELL DISTRIBUTION WIDTH 15.7 % (11.5-14.5); WHITE BLOOD COUNT 12.1 x10^3/uL (4.0-11.0)
[2017-01-06 23:56] LABS: BILIRUBIN,URINE SMALL (NEG); GLUCOSE,URINE NEGATIVE (NEG); NITRITE,URINE NEGATIVE (NEG); PH,URINE 5.5; PROTEIN,URINE NEGATIVE (NEG-TRACE); UROBILINOGEN,URINE 0.2 mg/dL (0.2 mg/dL)
[2017-01-07] MEDS ORDERED: MECLIZINE HCL 12.5 MG TABLET. PO ONE
--- NOTE | 2017-01-07 00:08 | PHYS DOC ---
Past Medical History Past Medical History: Anxiety, Asthma, CAD, Depression, Diabetes-Type II, High Cholesterol, Hypertension, AK, Other Additional Past Medical Histor: CARDIAC ARREST,OVERDOSE Past Surgical History: Angioplasty, Cholecystectomy, Tubal ligation, Other Additional Past Surgical Histo: wisdom teeth,breast reduction,ear tube placement,repair broken nose,STENT Alcohol Use: None Drug Use: Marijuana Adult General Chief Complaint Chief Complaint: DIZZY/LIGHT HEADED HPI HPI Patient is a 36 year old female with history of diabetes, dyslipidemia, hypertension, CAD, AK and tobaccoism who presents with acute onset of vertigo approximately 1 hour prior to ED arrival. Patient was lying in bed when symptoms began. Vertigo is described as room spinning. Symptoms are worse when standing and when head is turned to the right. So she had symptoms include nausea and tinnitus. Patient denies headache, neck pain, stiffness, loss of hearing. She denies new medication medications change. Denies upper respiratory tract symptoms. No fever chills or sweats. No chest pain or palpitations. No other acute symptoms or complaints. Review of Systems Review of Systems Review symptoms as per history of present illness. All other review symptoms are negative. Current Medications Current Medications Current Medications Medications (Trade) Dose Ordered Sig/Rohan Start Time Stop Time Status Last Admin Dose Admin Lorazepam (Ativan) 2 mg 1X ONCE 01/06/17 23:45 01/06/17 23:48 DC Meclizine HCl (Antivert) 25 mg 1X ONCE 01/07/17 00:00 01/07/17 00:01 DC 01/07/17 00:03 25 MG Ondansetron HCl (Zofran Odt) 4 mg 1X ONCE 01/06/17 23:45 01/06/17 23:46 DC 01/07/17 00:03 4 MG Allergies Allergies Allergies Coded Allergies Type Severity Reaction Last Updated Verified Penicillins Allergy Intermediate Hives 04/15/15 Yes ibuprofen Allergy Intermediate Rash 04/15/15 Yes Physical Exam Physical Exam Constitutional: Well developed, well nourished, no acute distress, mildly somnolent. [] HENT: Normocephalic, atraumatic, bilateral external ears normal, TMs pink and clear, oropharynx moist, no oral exudates, nose normal. [] Eyes: PERRL, EOMI, conjunctiva, horizontal nystagmus with right lateral gaze, fatigues on exam [] Neck: Normal range of motion, no tenderness, supple, no stridor. No bruits [] Cardiovascular:Heart rate regular rhythm, no murmur [] Lungs & Thorax: Bilateral breath sounds clear to auscultation [] Abdomen: Bowel sounds normal, soft, no tenderness, no masses, no pulsatile masses. [] Skin: Warm, dry, no erythema, no rash. [] Back: No tenderness. [] Extremities: No tenderness, no cyanosis, no clubbing, ROM intact, no edema. [] Neurologic: Alert and oriented 3, radial nerves II through XII grossly intact, normal motor function, normal sensory function, no focal deficits noted. [] Psychologic: Affect normal, judgement normal, mood normal. [] Current Patient Data Vital Signs Vital Signs Date Time Temp Pulse Resp B/P (MAP) Pulse Ox O2 Delivery O2 Flow Rate FiO2 01/06/17 23:24 97.9 61 16 149/79 (102) 96 Room Air 97.9 Lab Values Laboratory Tests Test 01/06/17 22:29 01/06/17 23:06 01/06/17 23:19 POC Urine HCG, Qualitative Hcg negative (Negative) Urine Collection Type Unknown Urine Color Yellow Urine Clarity Clear Urine pH 5.5 Urine Specific Haines 1.025 Urine Protein Negative mg/dL (NEG-TRACE) Urine Glucose (UA) Negative mg/dL (NEG) Urine Ketones (Stick) Negative mg/dL (NEG) Urine Blood Large (NEG) Urine Nitrite Negative (NEG) Urine Bilirubin Small (NEG) Urine Urobilinogen Dipstick 0.2 mg/dL (0.2 mg/dL) Urine Leukocyte Esterase Negative (NEG) Urine RBC Occ /HPF (0-2) Urine WBC 1-4 /HPF (0-4) Urine Squamous Epithelial Cells Mod /LPF Urine Bacteria Few /HPF (0-FEW) Urine Mucus Slight /LPF Urine Opiates Screen Neg (NEG) Urine Methadone Screen Neg (NEG) Urine Barbiturates Neg (NEG) Urine Phencyclidine Screen Neg (NEG) Urine Amphetamine/Methamphetamine Neg (NEG) Urine Benzodiazepines Screen Pos (NEG) Urine Cocaine Screen Neg (NEG) Urine Cannabinoids Screen Pos (NEG) Urine Ethyl Alcohol Neg (NEG) White Blood Count 12.1 x10^3/uL (4.0-11.0) H Red Blood Count 4.75 x10^6/uL (3.50-5.40) Hemoglobin 14.2 g/dL (12.0-15.5) Hematocrit 42.3 % (36.0-47.0) Mean Corpuscular Volume 89 fL (79-100) Mean Corpuscular Hemoglobin 30 pg (25-35) Mean Corpuscular Hemoglobin Concent 34 g/dL (31-37) Red Cell Distribution Width 15.7 % (11.5-14.5) H Platelet Count 217 x10^3/uL (140-400) Neutrophils (%) (Auto) 68 % (31-73) Lymphocytes (%) (Auto) 25 % (24-48) Monocytes (%) (Auto) 4 % (0-9) Eosinophils (%) (Auto) 3 % (0-3) Basophils (%) (Auto) 1 % (0-3) Neutrophils # (Auto) 8.2 x10^3uL (1.8-7.7) H Lymphocytes # (Auto) 3.0 x10^3/uL (1.0-4.8) Monocytes # (Auto) 0.5 x10^3/uL (0.0-1.1) Eosinophils # (Auto) 0.3 x10^3/uL (0.0-0.7) Basophils # (Auto) 0.1 x10^3/uL (0.0-0.2) Sodium Level 143 mmol/L (136-145) Potassium Level 3.4 mmol/L (3.5-5.1) L Chloride Level 105 mmol/L (98-107) Carbon Dioxide Level 24 mmol/L (21-32) Anion Gap 14 (6-14) Blood Urea Nitrogen 11 mg/dL (7-20) Creatinine 0.9 mg/dL (0.6-1.0) Estimated GFR (Cockcroft-Gault) 70.5 BUN/Creatinine Ratio 12 (6-20) Glucose Level 125 mg/dL (70-99) H Calcium Level 8.3 mg/dL (8.5-10.1) L Total Bilirubin 0.3 mg/dL (0.2-1.0) Aspartate Amino Transferase (AST) 23 U/L (15-37) Alanine Aminotransferase (ALT) 20 U/L (14-59) Alkaline Phosphatase 90 U/L (46-116) Total Protein 7.7 g/dL (6.4-8.2) Albumin 3.9 g/dL (3.4-5.0) Albumin/Globulin Ratio 1.0 (1.0-1.7) Laboratory Tests 01/06/17 23:19 Laboratory Tests 01/06/17 23:19 EKG EKG [] Radiology/Procedures Radiology/Procedures [CT head: No acute intracranial disease per radiology report] Course & Med Decision Making Course & Med Decision Making Pertinent Labs and Imaging studies reviewed. (See chart for details) [Patient with vertigo, which fatigues on exam. No focal neurologic deficits. Denies headache. CT head negative. Lab work essentially benign. Symptoms improved with treatment recommend discharge home with supportive care with PCP follow-up. Return precautions reviewed. Patient verbalizes understanding and agreement with discharge instructions.] Dragon Disclaimer Dragon Disclaimer This electronic medical record was generated, in whole or in part, using a voice recognition dictation system. Departure Departure Disposition: 01 HOME, SELF-CARE Referrals: MESSI VELAZQUEZ MD (PCP) Additional Instructions: Please take meclizine for dizziness and Zofran as needed for nausea. Stay home and rest for the next 1-2 days and follow-up with your PCP for reevaluation. Do not attempt to drive or perform any other potential dangerous activity while feeling dizzy. ADAL MIGUEL DO Jan 07, 2017 00:08
[2017-01-07 00:11] LABS: BACTERIA,URINE FEW /HPF (0-FEW); RBC,URINE OCC /HPF (0-2)
[2017-01-07 00:11] LABS: CALCIUM 8.3 mg/dL (8.5-10.1); CREATININE 0.9 mg/dL (0.6-1.0); GFR 70.5; POTASSIUM 3.4 mmol/L (3.5-5.1)
[2017-01-07 00:12] LABS: SQUAMOUS EPITHELIAL CELL,UR MOD /LPF
[2017-01-07 00:13] LABS: BARBITURATES NEG (NEG); BENZODIAZEPINES POS (NEG); CANNABINOIDS POS (NEG); COCAINE NEG (NEG); METHADONE NEG (NEG); OPIATES NEG (NEG); PHENCYCLIDINE NEG (NEG)
[2017-01-07 00:16] LABS: ALBUMIN 3.9 g/dL (3.4-5.0); TOTAL BILIRUBIN 0.3 mg/dL (0.2-1.0); TOTAL PROTEIN 7.7 g/dL (6.4-8.2)
--- NOTE | 2017-01-07 00:24 | RAD ---
EXAM: CT head without contrast HISTORY: dizzy, vertigo COMPARISON: August 02, 2016 TECHNIQUE: Computed tomographic images of the head were obtained without contrast. RS compliance statement: One or more of the following individualized dose reduction techniques were utilized for this examination: 1. Automated exposure control 2. Adjustment of the mA and/or kV according to patient size 3. Use of iterative reconstruction technique FINDINGS: There is no acute intracranial process identified. Specifically, there are no intracranial blood products, extra-axial fluid collections, mass effect or midline shift. Ventricles and basilar cisterns are maintained. The visualized portions of the orbits, paranasal sinuses and mastoid air cells are unremarkable. No suspicious calvarial lesion is seen. IMPRESSION: No acute intracranial findings. Electronically signed by: Mica Man MD (01/07/2017 12:20 AM) [facility]
[2017-01-07 01:30] VITALS: BP 121/63
== END 2017-01-07 01:52 | disposition home or self-care (01) ==
LOC: ER 22:55
DX: R42 Dizziness and giddiness (principal); R11.0 Nausea; H93.19 Tinnitus, unspecified ear; F41.9 Anxiety disorder, unspecified; J45.909 Unspecified asthma, uncomplicated; I25.10 Atherosclerotic heart disease of native coronary artery without angina pectoris; F32.9 Major depressive disorder, single episode, unspecified; E11.9 Type 2 diabetes mellitus without complications; E78.5 Hyperlipidemia, unspecified; I10 Essential (primary) hypertension; I25.2 Old myocardial infarction; E78.00 Pure hypercholesterolemia, unspecified; Z86.74 Personal history of sudden cardiac arrest; Z88.0 Allergy status to penicillin; Z95.5 Presence of coronary angioplasty implant and graft; Z90.49 Acquired absence of other specified parts of digestive tract; Z88.6 Allergy status to analgesic agent
CPT/HCPCS: 36415; 70450; 80053; 80307; 81001; 81025; 85025; 99285; J8597; Q0162; G0479

== ENCOUNTER 2017-08-15 19:27 | Emergency (ER) | payer OTHER ==
[2017-08-15] MEDS: DIPHTH,PERTUSS(ACELL),TET TOX 0.5 ML DISP.SYRIN. VAX IM (19:54)
== END 2017-08-15 20:15 | disposition home or self-care (01) ==
LOC: ER 19:27
DX: L03.811 Cellulitis of head [any part, except face] (principal); E11.9 Type 2 diabetes mellitus without complications; E78.00 Pure hypercholesterolemia, unspecified; I10 Essential (primary) hypertension; J45.909 Unspecified asthma, uncomplicated; I25.10 Atherosclerotic heart disease of native coronary artery without angina pectoris; F12.10 Cannabis abuse, uncomplicated; I25.2 Old myocardial infarction; Z88.0 Allergy status to penicillin; Z88.6 Allergy status to analgesic agent
CPT/HCPCS: 90471; 90715; 99283-25

== ENCOUNTER → 2017-08-17 | Outpatient (CLI) | payer OTHER | END | disposition home or self-care (01) | LOC: NM 08:16 | DX: I25.89 Other forms of chronic ischemic heart disease (principal); I10 Essential (primary) hypertension; E78.00 Pure hypercholesterolemia, unspecified; E78.5 Hyperlipidemia, unspecified; E11.9 Type 2 diabetes mellitus without complications; J45.909 Unspecified asthma, uncomplicated | CPT/HCPCS: 78452; 93017; 96374; 96376; A9500 ==

== ENCOUNTER 2017-08-19 00:51 | Emergency (ER) | payer OTHER ==
[2017-08-19 01:20] LABS: ADD MAN DIFF? NO
[2017-08-19 01:22] LABS: BASO # 0.1 x10^3/uL (0.0-0.2); BASO % 1 % (0-3); EOS # 0.5 x10^3/uL (0.0-0.7); EOS % 5 % (0-3); HEMATOCRIT 40.4 % (36.0-47.0); HEMOGLOBIN 13.8 g/dL (12.0-15.5); LYMPH # 2.8 x10^3/uL (1.0-4.8); LYMPH % 26 % (24-48); MEAN CORPUSCULAR HEMOGLOBIN 31 pg (25-35); MEAN CORPUSCULAR HGB CONC 34 g/dL (31-37); MEAN CORPUSCULAR VOLUME 89 fL (79-100); MONO # 0.9 x10^3/uL (0.0-1.1); MONO % 8 % (0-9); NEUT # 6.3 x10^3uL (1.8-7.7); NEUT % 60 % (31-73); PLATELET COUNT 259 x10^3/uL (140-400); RED BLOOD COUNT 4.52 x10^6/uL (3.50-5.40); RED CELL DISTRIBUTION WIDTH 15.9 % (11.5-14.5); WHITE BLOOD COUNT 10.5 x10^3/uL (4.0-11.0)
[2017-08-19 01:29] LABS: ANION GAP 9 (6-14); BLOOD UREA NITROGEN 7 mg/dL (7-20); CALCIUM 8.8 mg/dL (8.5-10.1); CARBON DIOXIDE 27 mmol/L (21-32); CHLORIDE 102 mmol/L (98-107); GFR 62.4; GLUCOSE 86 mg/dL (70-99); POTASSIUM 3.6 mmol/L (3.5-5.1); SODIUM 138 mmol/L (136-145)
[2017-08-19 01:38] LABS: URINE HCG POC HCG NEGATIVE (Negative)
[2017-08-19 02:03] LABS: AMPHETAMINE/METHAMPHETAMINE NEG (NEG); BARBITURATES NEG (NEG); BENZODIAZEPINES NEG (NEG); COCAINE POS (NEG); METHADONE NEG (NEG); OPIATES NEG (NEG)
[2017-08-19 02:04] LABS: CANNABINOIDS POS (NEG); ETHANOL, URINE NEG (NEG); PHENCYCLIDINE NEG (NEG)
[2017-08-19] MEDS ORDERED: ONDANSETRON PF 4 MG/2 ML VIAL. IV (02:30)
[2017-08-19] MEDS ORDERED: fentaNYL PF VIAL 100 MCG/2 ML VIAL IV (02:30)
[2017-08-19] MEDS ORDERED: ACETAMINOPHEN 325 MG TABLET. PO (02:30)
[2017-08-19] MEDS ORDERED: VANCOMYCIN 2 GM in IV 1/2 NORMAL SALINE 500 ML IV (03:00)
[2017-08-19] MEDS ORDERED: VANCOMYCIN PER PHARMACY MC (03:00)
== END 2017-08-19 03:09 | disposition left against medical advice (07) ==
LOC: ER 03:09 → 4 NORTH 02:19
DX: H60.11 Cellulitis of right external ear (principal); F12.10 Cannabis abuse, uncomplicated; H66.91 Otitis media, unspecified, right ear; I10 Essential (primary) hypertension; E11.9 Type 2 diabetes mellitus without complications; E78.00 Pure hypercholesterolemia, unspecified; J45.909 Unspecified asthma, uncomplicated; I25.2 Old myocardial infarction; Z95.5 Presence of coronary angioplasty implant and graft; Z98.51 Tubal ligation status; Z90.49 Acquired absence of other specified parts of digestive tract; Z88.0 Allergy status to penicillin; Z88.6 Allergy status to analgesic agent
CPT/HCPCS: 36415; 70450; 80048; 80307; 81025; 85025; 99285-25

== ENCOUNTER 2017-08-30 06:53 | Outpatient (CLI) | payer OTHER ==
[2017-08-30] MEDS ORDERED: LIDOCAINE 2% 20 ML VIAL. (07:10)
[2017-08-30] MEDS ORDERED: IOHEXOL 300 MG/ML 100ML VIAL. ×2 (07:11→08:39)
[2017-08-30 07:23] LABS: HEMATOCRIT 42.9 % (36.0-47.0); HEMOGLOBIN 14.5 g/dL (12.0-15.5); MEAN CORPUSCULAR HEMOGLOBIN 30 pg (25-35); MEAN CORPUSCULAR HGB CONC 34 g/dL (31-37); MEAN CORPUSCULAR VOLUME 89 fL (79-100); PLATELET COUNT 286 x10^3/uL (140-400); RED BLOOD COUNT 4.83 x10^6/uL (3.50-5.40); RED CELL DISTRIBUTION WIDTH 15.2 % (11.5-14.5); WHITE BLOOD COUNT 12.8 x10^3/uL (4.0-11.0)
[2017-08-30 07:30] LABS: ANION GAP 12 (6-14); BLOOD UREA NITROGEN 24 mg/dL (7-20); CALCIUM 8.9 mg/dL (8.5-10.1); CARBON DIOXIDE 23 mmol/L (21-32); CHLORIDE 105 mmol/L (98-107); GFR 62.4; GLUCOSE 113 mg/dL (70-99); POTASSIUM 3.8 mmol/L (3.5-5.1); SODIUM 140 mmol/L (136-145)
[2017-08-30 07:31] LABS: PARTIAL THROMBOPLASTIN TIME 26 SEC (24-38)
[2017-08-30 07:33] LABS: PROTHROMBIN TIME PATIENT 12.4 SEC (11.7-14.0)
[2017-08-30] MEDS ORDERED: HEPARIN for IV BOLUS 10,000 UNIT/10 ML VIAL. (07:40)
[2017-08-30] MEDS ORDERED: MIDAZOLAM HCL/PF 2 MG/2 ML VIAL. ×2 (07:40→08:25)
[2017-08-30] MEDS ORDERED: VERAPAMIL 5 MG/2 ML VIAL. (07:40)
[2017-08-30] MEDS ORDERED: fentaNYL PF VIAL 100 MCG/2 ML VIAL ×2 (07:40→08:25)
[2017-08-30] MEDS ORDERED: NITROGLYCERIN 200 MCG/2 ML SYRINGE FOR CATH/VASC LAB. (07:41)
[2017-08-30] MEDS: IOHEXOL 300 MG/ML 100ML VIAL. IART (09:15)
[2017-08-30] MEDS: LIDOCAINE 2% 20 ML VIAL. IJ (09:16)
[2017-08-30] MEDS: NITROGLYCERIN 200 MCG/2 ML SYRINGE FOR CATH/VASC LAB. IART (09:16)
[2017-08-30] MEDS: MIDAZOLAM HCL/PF 2 MG/2 ML VIAL. IV (09:17)
[2017-08-30] MEDS: VERAPAMIL 5 MG/2 ML VIAL. IART (09:18)
[2017-08-30] MEDS: HEPARIN for IV BOLUS 10,000 UNIT/10 ML VIAL. IART (09:19)
[2017-08-30] MEDS: fentaNYL PF VIAL 100 MCG/2 ML VIAL IV (09:21)
[2017-08-30] MEDS: HEPARIN for IV BOLUS 10,000 UNIT/10 ML VIAL. IV (09:21)
== END 2017-08-30 12:50 | disposition home or self-care (01) ==
LOC: CCL 06:53
DX: T82.855A Stenosis of coronary artery stent, initial encounter (principal); I25.110 Atherosclerotic heart disease of native coronary artery with unstable angina pectoris; I25.2 Old myocardial infarction; I10 Essential (primary) hypertension; E78.5 Hyperlipidemia, unspecified; E11.9 Type 2 diabetes mellitus without complications; J45.909 Unspecified asthma, uncomplicated; Z95.5 Presence of coronary angioplasty implant and graft; Z87.891 Personal history of nicotine dependence; Z79.82 Long term (current) use of aspirin; Z79.899 Other long term (current) drug therapy; Y83.8 Other surgical procedures as the cause of abnormal reaction of the patient, or of later complication, without mention of misadventure at the time of the procedure; Y92.89 Other specified places as the place of occurrence of the external cause; Z88.0 Allergy status to penicillin; Z88.8 Allergy status to other drugs, medicaments and biological substances
CPT/HCPCS: 36415; 80048; 85027; 85610; 85730; 93458; 93571; 93572; 99152; 99153; C1769; C1892; J1644; J2250; J3010; J3490; Q9967

== ENCOUNTER → 2017-09-16 | Outpatient (CLI) | payer OTHER | END | disposition home or self-care (01) | LOC: RAD 15:09 | DX: M51.36 Other intervertebral disc degeneration, lumbar region (principal); M51.37 Other intervertebral disc degeneration, lumbosacral region; M43.06 Spondylolysis, lumbar region | CPT/HCPCS: 72100 ==